=== PATIENT | male | born 1960 | race Caucasian/White ===

== ENCOUNTER → 2021-04-17 | Outpatient (CLI) | payer OTHER | LOC: SJCVCIMAG 08:15 | PROVIDERS: ATTEND Internal Medicine | DX: I07.1 Rheumatic tricuspid insufficiency (principal); I10 Essential (primary) hypertension; F17.200 Nicotine dependence, unspecified, uncomplicated; E11.9 Type 2 diabetes mellitus without complications; K46.9 Unspecified abdominal hernia without obstruction or gangrene; Z72.89 Other problems related to lifestyle; Z79.899 Other long term (current) drug therapy ==

== ENCOUNTER → 2021-04-21 | Outpatient (CLI) | payer OTHER | LOC: CAT 10:25 | PROVIDERS: ATTEND Internal Medicine | DX: Z13.6 Encounter for screening for cardiovascular disorders (principal); I25.10 Atherosclerotic heart disease of native coronary artery without angina pectoris ==